=== PATIENT | female | born 1985 | race African-American/Black ===

== ENCOUNTER 2023-06-20 16:41 | Emergency (ER) | payer OTHER ==
[~2023-06-20] VITALS: Ht 162.6 cm; Wt 114.6 kg
[2023-06-20] MEDS ORDERED: METF-839 PO (16:54)
[2023-06-20] MEDS ORDERED: KETOROLAC 30 MG/ML 1ML VIAL IV ONE (19:35)
[2023-06-20 20:25] LABS: APPEARANCE, URINE CLEAR (CLEAR); BACTERIA, URINE AUTO NEGATIVE (NEGATIVE); BILIRUBIN, URINE AUTO NEGATIVE (NEGATIVE); BLOOD, URINE BLOOD NEGATIVE (NEGATIVE); COLOR, URINE STRAW (YELLOW); GLUCOSE, URINE (UA) AUTO NEGATIVE (NEGATIVE); KETONE, URINE AUTO NEGATIVE (NEGATIVE); LEUKOCYTE ESTERASE, URINE AUTO NEGATIVE (NEGATIVE); NITRITE, URINE AUTO NEGATIVE (NEGATIVE); PROTEIN, URINE AUTO NEGATIVE (NEGATIVE); RBC, URINE AUTO 1 /HPF (0-3); SQUAMOUS EPITHELIAL CELL UR AU 0 /HPF (0-6); UROBILINOGEN, URINE AUTO 0.2 mg/dL (0.0-2.0); WBC, URINE AUTO 1 /HPF (0-3)
[2023-06-20 20:29] VITALS: BP 125/81; TEMP 98.8; O2SAT 100
[2023-06-20] MEDS ORDERED: IBUP80TA PO (21:19)
[2023-06-20] MEDS ORDERED: CYCL-707 PO (21:19)
== END 2023-06-20 21:45 | disposition home or self-care (01) ==
LOC: M ED 16:41
DX: M54.2 Cervicalgia (principal); M54.9 Dorsalgia, unspecified; R93.7 Abnormal findings on diagnostic imaging of other parts of musculoskeletal system; V49.00XA Driver injured in collision with unspecified motor vehicles in nontraffic accident, initial encounter; W22.09XA Striking against other stationary object, initial encounter; Y92.481 Parking lot as the place of occurrence of the external cause
CPT/HCPCS: 70450; 72125; 80047; 81001; 96374; 99284; J1885